=== PATIENT | female | born 2000 | race Hispanic/Latino ===

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

== ENCOUNTER 2022-04-14 19:51 | Emergency (ER) | payer OTHER ==
[2022-04-14] MEDS ORDERED: Ibuprofen 800 MG TAB ONE (21:11)
[2022-04-14] MEDS ORDERED: Boostrix 0.5 ML (Tdap) VIAL (>/=7 yrs of age) ONE (21:11)
== END 2022-04-14 21:30 | disposition home or self-care (01) ==
LOC: ERS 19:51
DX: S40.011A Contusion of right shoulder, initial encounter (principal); Z23 Encounter for immunization; I10 Essential (primary) hypertension; V42.6XXA Car passenger injured in collision with two- or three-wheeled motor vehicle in traffic accident, initial encounter
CPT/HCPCS: 90471; 90715